=== PATIENT | male | born 1955 | race Caucasian/White ===

== ENCOUNTER → 2018-02-23 | Outpatient (CLI) | payer MEDICAID, MEDICARE ==
[2018-02-23 11:54] LABS: ABSOLUTE EOSINOPHILS # (AUTO) 0.1 10^3/uL (0.0-0.6); ABSOLUTE LYMPHOCYTES (AUTO) 1.4 10^3/uL (0.5-4.7); ABSOLUTE MONOCYTES (AUTO) 0.3 10^3/uL (0.1-1.4); ABSOLUTE NEUT (AUTO) 2.2 10^3/uL (1.7-8.2); BASOPHILS % (AUTO) 0.6 % (0-2); HEMATOCRIT 45.8 % (37.9-51.0); HEMOGLOBIN 15.2 g/dL (13.5-17.0); MEAN CORPUSCULAR HEMOGLOBIN 26.5 pg (27.0-33.4); MEAN CORPUSCULAR HGB CONC 33.2 g/dL (32.0-36.0); MEAN CORPUSCULAR VOLUME 80 fl (80-97); MONOCYTES % (AUTO) 7.3 % (3-13); PLATELET COUNT 174 10^3/uL (150-450); RED BLOOD COUNT 5.75 10^6/uL (4.35-5.55); SEGMENTED NEUTROPHILS % (AUTO) 55.1 % (42-78); TOTAL CELLS COUNTED % (AUTO) 100 %
[2018-02-23 12:13] LABS: ALANINE AMINOTRANSFERASE 18 U/L (21-72); ALBUMIN 4.2 g/dL (3.5-5.0); ALKALINE PHOSPHATASE 55 U/L (38-126); ANION GAP 6 (5-19); ASPARTATE AMINO TRANSFERASE 24 U/L (17-59); BILIRUBIN,DIRECT 0.2 mg/dL (0.0-0.4); BILIRUBIN,TOTAL 0.6 mg/dL (0.2-1.3); BLOOD UREA NITROGEN 20 mg/dL (7-20); CALCIUM 10.3 mg/dL (8.4-10.2); CARBON DIOXIDE 33 mmol/L (22-30); CHLORIDE 103 mmol/L (98-107); GLUCOSE 86 mg/dL (75-110); POTASSIUM 4.3 mmol/L (3.6-5.0); SODIUM 142.4 mmol/L (137-145); TOTAL PROTEIN 7.3 g/dL (6.3-8.2)
== END ==
LOC: OD 11:06
PROVIDERS: ATTEND Orthopaedic Surgery Sports Medicine
DX: I10 Essential (primary) hypertension (principal); Z11.2 Encounter for screening for other bacterial diseases
CPT/HCPCS: 36415; 80053; 85025; 87070

== ENCOUNTER 2018-06-11 15:08 | Emergency (ER) | payer MEDICARE ==
--- NOTE | 2018-06-11 15:45 | RADIOLOGY REPORT (SQ) ---
EXAM DESCRIPTION: CHEST SINGLE VIEW COMPLETED DATE/TIME: 06/11/2018 3:31 pm REASON FOR STUDY: bed 14 cp COMPARISON: None. EXAM PARAMETERS: NUMBER OF VIEWS: One view. TECHNIQUE: Single frontal radiographic view of the chest acquired. RADIATION DOSE: NA LIMITATIONS: None. FINDINGS: LUNGS AND PLEURA: Low volume examination with mass of the right midlung. MEDIASTINUM AND HILAR STRUCTURES: No masses. Contour normal. HEART AND VASCULAR STRUCTURES: Heart normal in size. Normal vasculature. BONES: No acute findings. HARDWARE: None in the chest. OTHER: No other significant finding. IMPRESSION: Low volume examination with mass of the right midlung. Recommend CT to further evaluate . TECHNICAL DOCUMENTATION: JOB ID: [id number] [employer]- All Rights Reserved Reading location - IP/workstation name: [email or web address]
[2018-06-11 15:58] LABS: ABSOLUTE LYMPHOCYTES (AUTO) 0.8 10^3/uL (0.5-4.7); ABSOLUTE MONOCYTES (AUTO) 1.1 10^3/uL (0.1-1.4); ABSOLUTE NEUT (AUTO) 13.1 10^3/uL (1.7-8.2); BASOPHILS % (AUTO) 0.3 % (0-2); HEMATOCRIT 45.1 % (37.9-51.0); HEMOGLOBIN 14.9 g/dL (13.5-17.0); LYMPHOCYTES % (AUTO) 5.3 % (13-45); MEAN CORPUSCULAR HEMOGLOBIN 26.1 pg (27.0-33.4); MEAN CORPUSCULAR VOLUME 79 fl (80-97); PLATELET COUNT 203 10^3/uL (150-450); RED BLOOD COUNT 5.71 10^6/uL (4.35-5.55); RED CELL DISTRIBUTION WIDTH 13.8 % (11.5-14.0); SEGMENTED NEUTROPHILS % (AUTO) 87.4 % (42-78); TOTAL CELLS COUNTED % (AUTO) 100 %
[2018-06-11 16:15] LABS: ALANINE AMINOTRANSFERASE 88 U/L (21-72); ALBUMIN 3.6 g/dL (3.5-5.0); ALKALINE PHOSPHATASE 74 U/L (38-126); ANION GAP 11 (5-19); ASPARTATE AMINO TRANSFERASE 118 U/L (17-59); BILIRUBIN,DIRECT 0.5 mg/dL (0.0-0.4); BILIRUBIN,TOTAL 1.7 mg/dL (0.2-1.3); BLOOD UREA NITROGEN 33 mg/dL (7-20); CALCIUM 9.4 mg/dL (8.4-10.2); CARBON DIOXIDE 24 mmol/L (22-30); CHLORIDE 101 mmol/L (98-107); CREATINE KINASE 51 U/L (55-170); GLUCOSE 135 mg/dL (75-110); POTASSIUM 3.7 mmol/L (3.6-5.0); SODIUM 136.3 mmol/L (137-145)
[2018-06-11 16:27] LABS: CREATINE KINASE MB < 0.22 ng/mL (<4.55); TROPONIN I 0.016 ng/mL
--- NOTE | 2018-06-11 19:01 | EKG REPORT ---
SEVERITY:- ABNORMAL ECG - SINUS TACHYCARDIA PROBABLE LEFT ATRIAL ABNORMALITY RIGHT BUNDLE BRANCH BLOCK + LAFB PROBABLE ANTEROSEPTAL INFARCT, AGE INDETERM : Confirmed by: Clifton Stone MD 11-Jun-2018 19:00:28
--- NOTE | 2018-06-11 22:06 | RADIOLOGY REPORT (SQ) ---
EXAM DESCRIPTION: CT CHEST ANGIOGRAPHY WITHOUT THEN WITH IV CONTRAST, three-dimensional reconstructions COMPLETED DATE/TME: 06/11/2018 21:27 CLINICAL HISTORY: 62 years, Male, follow-up cxr, eval pe ?pneumonia This exam was performed according to our departmental dose-optimization program which includes automated exposure control, adjustment of the mA and/or kVp according to patient size and/or use of iterative reconstruction technique where applicable. FINDINGS: Thyroid is within normal limits. Aorta is mildly calcified. The pulmonary arteries are well opacified with no significant filling defects in the pulmonary arterial tree to suggest acute pulmonary embolism. Mild mediastinal lymphadenopathy. There appears to be a right hilar and right lower lobe mass, measuring approximately 6 x 5 cm. There is narrowing of right lower lobe and middle lobe bronchi. There appears to be postobstructive pneumonia in right upper lobe and right middle lobe. Visualized upper abdominal organs demonstrate evidence for cholelithiasis. IMPRESSION: Right lower lobe and right hilar mass, malignancy suspected with right lung postobstructive pneumonia. No evidence for acute pulmonary embolism.
[2018-06-11] MEDS ORDERED: AZITHROMYCIN 250 MG TABLET PO ONE (22:25)
[2018-06-11] MEDS ORDERED: CEFTRIAXONE INJ 1000 MG VIAL IV ONE (22:25)
[2018-06-11] MEDS ORDERED: NORMAL SALINE 1000 ML 1,000 ML IV ONE (22:26)
--- NOTE | 2018-06-11 22:26 | ER Document Report ---
ED General - General Chief Complaint: Chest Pain Stated Complaint: CHEST PAIN Time Seen by Provider: 06/11/18 18:47 Primary Care Provider: DEBBIE BATEMAN MD [Primary Care Provider] - Follow up as needed Notes: Patient is a 62-year-old male with a past medical history of essential hypertension who presents with 1 week of cough and 24 hours of shortness of breath and fever. Patient states that his symptoms started gradually, dramatically worsened within the last 24 hours. Regards him as being severe and constant at this time. Nothing improves or worsens his symptoms. EMS was contacted, found that the patient did have a fever and he was subsequently transported to the emergency department. Patient denies any history of similar symptoms in the past. Has not seen his primary care physician regarding today's concerns. Patient does note that he has a stabbing, aching discomfort over his right lower chest wall worsened by coughing and movement. Denies any radiation of the pain. No cardiac history. TRAVEL OUTSIDE OF THE [place] IN LAST 30 DAYS: No Past Medical History - General Information source: Patient - Social History Smoking Status: Former Smoker Chew tobacco use (# tins/day): No Frequency of alcohol use: None Drug Abuse: None Lives with: Family Family History: Reviewed & Not Pertinent Patient has suicidal ideation: No Patient has homicidal ideation: No - Past Medical History Cardiac Medical History: Reports: Hx Hypertension Renal/ Medical History: Denies: Hx Peritoneal Dialysis Review of Systems - Review of Systems Notes: Constitutional: Positive for fever. HENT: Negative for sore throat. Eyes: Negative for visual changes. Cardiovascular: Positive for chest pain. Respiratory: Positive for shortness of breath, cough and sputum production Gastrointestinal: Negative for abdominal pain, vomiting or diarrhea. Genitourinary: Negative for dysuria. Musculoskeletal: Negative for back pain. Skin: Negative for rash. Neurological: Negative for headaches, weakness or numbness. 10 point ROS negative except as marked above and in HPI. Physical Exam - Vital signs Vitals: Pulse Ox 91 L 06/11/18 15:10 Interpretation: Tachycardic, Hypoxic, Tachypneic, Febrile Notes: PHYSICAL EXAMINATION: GENERAL: Moderately ill in appearance but in no overt distress HEAD: Atraumatic, normocephalic. EYES: Pupils equal round and reactive to light, extraocular movements intact, sclera anicteric, conjunctiva are normal. ENT: nares patent, oropharynx clear without exudates. Dry mucous membranes. NECK: Normal range of motion, supple without lymphadenopathy LUNGS: Mild tachypnea, no wheezing or rales. Moderately diminished at the right base. HEART: Regular tachycardia without murmurs ABDOMEN: Soft, nontender, normoactive bowel sounds. No guarding, no rebound. No masses appreciated. EXTREMITIES: Normal range of motion, no pitting or edema. No cyanosis. NEUROLOGICAL: No focal neurological deficits. Moves all extremities spontaneously and on command. PSYCH: Normal mood, normal affect. SKIN: Warm, Dry, normal turgor, no rashes or lesions noted. Course - Re-evaluation Re-evalutation: 06/11/18 21:28 Patient presents with fever, cough, sputum production and hypoxia. Symptoms started over 1 week ago, have gotten progressively worse since that time. Patient is somewhat ill in appearance, mildly tachypneic, saturating 93% on 3 L by nasal cannula. Coughing up blood-tinged yellow-green sputum. Diminished in the right lower lobe. Labs reveal leukocytosis, troponins negative. 06/11/18 23:20 I have reassessed the patient on two occasions since initial documentation. Patient appears clinically improved after receiving IV fluids, less labored breathing at this point. Straight a obstructive postobstructive pneumonia with an associated 6 x 5 cm right lower and hilar mass. The patient was disclosed the unfortunate diagnosis of probable lung malignancy. Unfortunately, after a long conversation with with Dr. Ramírez unfortunately due to lack of pulmonary support and the patient having a post obstructive pneumonia with a lung mass it is not safe to get the patient here as he will require bronchoscopy. I did call [facility], they unfortunately on regional diversion. Contacted [facility], they are working to see if they can get this patient placed on other ancillary facilities. Will continue to reassess the patient at regular intervals and I am awaiting callback from [employer] 06/12/18 00:28 Patient has been accepted by Dr. Juarez at [facility]. 06/12/18 03:25 Patient remains hemodynamically within normal limits, lying in bed in no distress. Maintenance fluids have been ordered. Awaiting transport. - Vital Signs Vital signs: Temp Pulse Resp BP Pulse Ox 98.6 F 98 21 H 145/77 H 94 06/12/18 02:29 06/11/18 15:15 06/11/18 22:00 06/11/18 21:00 06/12/18 00:00 - Laboratory Result Diagrams: 06/11/18 15:41 06/11/18 15:41 Laboratory results interpreted by me: 06/11/18 06/11/18 15:41 15:41 WBC 15.0 H RBC 5.71 H MCV 79 L MCH 26.1 L Seg Neutrophils % 87.4 H Lymphocytes % 5.3 L Absolute Neutrophils 13.1 H Sodium 136.3 L BUN 33 H Glucose 135 H Total Bilirubin 1.7 H Direct Bilirubin 0.5 H AST 118 H ALT 88 H Creatine Kinase 51 L - Diagnostic Test Radiology reviewed: Image reviewed, Reports reviewed Radiology results interpreted by me: 06/12/18 03:27 Chest x-ray: Right middle lobe mass - EKG Interpretation by Me Additional EKG results interpreted by me: 06/12/18 03:27 Sinus tachycardia, rate 104, right bundle branch block present. Critical Care Note - Critical Care Note Total time excluding time spent on procedures (mins): 40 Comments: Critical care time spent obtaining history from patient or surrogate, discussions with consultants, development of treatment plan with patient or surrogate, evaluation of patient's response to treatment, examination of patient, ordering and performing treatments and interventions, ordering and review of laboratory studies, re-evaluation of patient's condition, ordering and review of radiographic studies and review of old charts Discharge - Discharge Clinical Impression: Postobstructive pneumonia, Mass of right lung Sepsis Qualifiers: Sepsis type: sepsis due to unspecified organism Qualified Code(s): A41.9 - Sepsis, unspecified organism Condition: Fair Disposition: [facility] Referrals: DEBBIE BATEMAN MD [Primary Care Provider] - Follow up as needed
[2018-06-12] MEDS ORDERED: RINGERS SOLUTION,LACTATED 1,000 ML IV ONE (03:26)
--- NOTE | 2018-06-12 09:59 | ER Document Report ---
Doctor's Note Notes: 06/12/18 09:56 Rounds: Chart reviewed and patient interviewed. Patient came in with symptoms of lung infection and was, with cough, fever, chills, etc. Chest x-ray shows that he has a mass in the right lower lobe with a postobstructive pneumonia. Patient is expected to need bronchoscopy, unavailable at this hospital. A rrangements were made for for him to be transferred elsewhere. He has an accepting doctor advised him, but there are no beds available yet. Patient remained stable. Vital signs are all normal except for respiratory rate in the low 30s. O2 sat on 2 L is 95%. Patient has had Rocephin IV and Zithromax p.o. Patient appears to be stable for transfer. Grace Hollins MD (LEE HOLLINS) 06/13/18 03:22 Patient's vital signs remained stable. Patient is resting comfortably without difficulty. He is accompanied by family member. I have updated them. We continue to wait for a bed at [facility] and once at bed becomes available, we will arrange for transport. In the meantime, we will continue antibiotics and supportive therapy. (JOHN OLGUIN)
[2018-06-12] MEDS: CEFTRIAXONE 1 GM/D5W RTU 1 GM/50 ML RTUPB IV SCH (18:29)
[2018-06-12] MEDS: AZITHROMYCIN 250 MG TABLET PO SCH (18:30)
[2018-06-12] MEDS ORDERED: AZITHROMYCIN 250 MG TABLET PO ONE (22:00)
[2018-06-12] MEDS ORDERED: CEFTRIAXONE INJ 1000 MG VIAL IV ONE (22:00)
[2018-06-13] MEDS: CEFTRIAXONE 1 GM/D5W RTU 1 GM/50 ML RTUPB IV SCH (10:27)
[2018-06-13] MEDS: AZITHROMYCIN 250 MG TABLET PO SCH (10:27)
[2018-06-14] MEDS: CEFTRIAXONE 1 GM/D5W RTU 1 GM/50 ML RTUPB IV SCH (10:26)
[2018-06-14] MEDS: AZITHROMYCIN 250 MG TABLET PO SCH (10:27)
[2018-06-14 10:45] LABS: VENOUS BLOOD BASE EXCESS 4.2 mmol/L; VENOUS BLOOD HCO3 29.2 mmol/L (20-32); VENOUS BLOOD PCO2 44.4 mmHg (35-63); VENOUS BLOOD PH 7.44 (7.30-7.42)
[2018-06-14 10:50] LABS: ABSOLUTE BASOPHILS # (AUTO) 0.1 10^3/uL (0.0-0.2); ABSOLUTE EOSINOPHILS # (AUTO) 0.3 10^3/uL (0.0-0.6); ABSOLUTE LYMPHOCYTES (AUTO) 1.6 10^3/uL (0.5-4.7); ABSOLUTE MONOCYTES (AUTO) 0.5 10^3/uL (0.1-1.4); ABSOLUTE NEUT (AUTO) 5.1 10^3/uL (1.7-8.2); BASOPHILS % (AUTO) 1.5 % (0-2); EOSINOPHILS % (AUTO) 3.5 % (0-6); HEMATOCRIT 43.6 % (37.9-51.0); HEMOGLOBIN 14.5 g/dL (13.5-17.0); LYMPHOCYTES % (AUTO) 21.4 % (13-45); MEAN CORPUSCULAR HEMOGLOBIN 26.5 pg (27.0-33.4); MEAN CORPUSCULAR HGB CONC 33.2 g/dL (32.0-36.0); MEAN CORPUSCULAR VOLUME 80 fl (80-97); MONOCYTES % (AUTO) 6.1 % (3-13); PLATELET COUNT 257 10^3/uL (150-450); RED BLOOD COUNT 5.46 10^6/uL (4.35-5.55); RED CELL DISTRIBUTION WIDTH 13.8 % (11.5-14.0); SEGMENTED NEUTROPHILS % (AUTO) 67.5 % (42-78); TOTAL CELLS COUNTED % (AUTO) 100 %; WHITE BLOOD COUNT 7.5 10^3/uL (4.0-10.5)
[2018-06-14 11:03] LABS: ANION GAP 7 (5-19); BLOOD UREA NITROGEN 26 mg/dL (7-20); CALCIUM 8.9 mg/dL (8.4-10.2); CARBON DIOXIDE 25 mmol/L (22-30); CHLORIDE 109 mmol/L (98-107); GLUCOSE 106 mg/dL (75-110); POTASSIUM 3.2 mmol/L (3.6-5.0); SODIUM 141.3 mmol/L (137-145)
--- NOTE | 2018-06-14 11:25 | ER Document Report ---
Doctor's Note Notes: 06/14/18 11:23 But in hospital contacted [place] emergency department regarding Mr. Rivera who upon review of his chart was found to have a postobstructive pneumonia likely secondary to malignancy and was thought to likely require a bronchoscopy which is not available here. Questioning whether patient would accept transfer to [facility] which is a sister hospital to [facility] which is approximately [place] of [place]. Upon my exam patient is alert, awake sister is at the bedside and patient approached regarding his preference and hospitals. At this time patient is agreeable to transfer to [facility]. I talked to Dr. Mahmood who has accepted the patient to the ICU. 06/14/18 11:24 Patient evaluated upon transfer team arrival. Vitals reviewed. Patient is stable for transfer.
[2018-06-14 13:08] VITALS: BP 140/86
== END 2018-06-14 11:30 | disposition short-term general hospital (02) ==
LOC: ER 15:08
DX: A41.9 Sepsis, unspecified organism (principal); J18.9 Pneumonia, unspecified organism; R91.8 Other nonspecific abnormal finding of lung field; I45.10 Unspecified right bundle-branch block; R00.0 Tachycardia, unspecified; R09.02 Hypoxemia; R05 Cough; R06.02 Shortness of breath; R07.89 Other chest pain; R50.9 Fever, unspecified; I10 Essential (primary) hypertension; Z87.891 Personal history of nicotine dependence
CPT/HCPCS: 93005; 36415; 87040; 82553; 82550; 85025; 80048; 80053; 84484; 82803; 83605; 71045; 71275; 93010; A9270 ×2; J0696 ×2; J7030

== ENCOUNTER → 2019-03-30 | Outpatient (CLI) | payer MEDICAID, MEDICARE ==
--- NOTE | 2019-03-30 16:07 | RADIOLOGY REPORT (SQ) ---
EXAM DESCRIPTION: VENOUS BILATERAL LOWER COMPLETED DATE/TIME: 03/30/2019 3:58 pm REASON FOR STUDY: PVD R20.0 ANESTHESIA OF SKIN COMPARISON: None. TECHNIQUE: Dynamic and static dave scale and color images acquired of both lower extremity venous sy stems. Selected spectral images acquired with additional compression and augmentation maneuvers. Imag es stored on PACS. LIMITATIONS: None. FINDINGS: RIGHT LEG COMMON FEMORAL AND FEMORAL: Normal phasicity, compression and augmentation. No visualized echogenic m aterial on dave scale. No defects on color images. POPLITEAL: Normal compression and augmentation. No visualized echogenic material on dave scale. No de fects on color images. CALF VESSELS: Normal compression and augmentation. No visualized echogenic material on dave scale. No defects on color image. GSV AND SSV: Normal compression. No visualized echogenic material on dave scale. No defects on color images. ANY DEEP VENOUS INSUFFICIENCY: No. ANY EVIDENCE OF POPLITEAL CYST: No. OTHER: No other significant finding. LEFT LEG COMMON FEMORAL AND FEMORAL: Normal phasicity, compression and augmentation. No visualized echogenic m aterial on dave scale. No defects on color images. POPLITEAL: Normal compression and augmentation. No visualized echogenic material on dave scale. No de fects on color images. CALF VESSELS: Normal compression and augmentation. No visualized echogenic material on dave scale. No defects on color images. GSV AND SSV: Normal compression. No visualized echogenic material on dave scale. No defects on color images. ANY DEEP VENOUS INSUFFICIENCY: No. ANY EVIDENCE POPLITEAL CYST: No. OTHER: No other significant finding. IMPRESSION: NO EVIDENCE DVT OR SVT IN EITHER LEG. TECHNICAL DOCUMENTATION: JOB ID: [id number] [employer]- All Rights Reserved Reading location - IP/workstation name: [email or web address]
--- NOTE | 2019-04-01 12:01 | XCELERA REPORT ---
[address] [address] Lower Extremity Arterial Evaluation Name: SUHAIL KIRBY Age: 63 yrs Gender: Male : 1955 Patient Status: Outpatient Patient Location: RAD Study Date: 03/30/2019 08:25 AM Procedure: A color flow and duplex scan of the lower extremity arteries was performed bilaterally with velocity and waveform anaylsis. Reason For Study: PVD Ordering Physician: ARLEN RIOS Performed By: Jose Angel Villasenor Measurements and Calculations Right Left OUTREACH MANAGER PSV 121.4 95.9 cm/sec Prox PFA PSV -71.1 -74.2 cm/sec Prox SFA PSV 94.3 69.8 cm/sec Mid SFA PSV -81.0 -103.1cm/sec Dist SFA PSV -71.7 -63.3 cm/sec Prox Pop A PSV 61.3 44.9 cm/sec Dist Pop A PSV -60.5 -59.7 cm/sec Dist NORIS PSV 54.8 105.6 cm/sec Dist OUTREACH EDUCATOR PSV 84.1 101.2 cm/sec Toy Pedis PSV 97.8 78.6 cm/sec Right Side Arterial Evaluation Normal velocity and triphasic waveforms noted from the Common Femoral artery to the infrageniculate vessels . Ankle Brachial index not done. Left Side Arterial Evaluation Normal velocity and triphasic waveforms noted from the Common Femoral artery to the infrageniculate vessels . Ankle Brachial index not done. Interpretation Summary No hemodynamically significant lesions in the bilateral lower extremities, on duplex imaging, at rest. : ARLEN RIOS > Wayne Harley
== END ==
LOC: RAD 07:37
PROVIDERS: ATTEND Physician Assistant
DX: I73.9 Peripheral vascular disease, unspecified (principal); R20.0 Anesthesia of skin
CPT/HCPCS: 93925; 93970